=== PATIENT | male | born 1985 | race Caucasian/White ===

== ENCOUNTER 2021-04-12 23:08 | Emergency (ER) | payer OTHER ==
[2021-04-12 23:36] LABS: BASOPHIL 0.8 % (0-2); EOSINOPHIL 3.7 % (0-5); HCT 43.8 % (42.0-52.0); HGB 14.8 g/dl (13.2-18.0); LYMPHOCYTE 33.6 % (15-48); MCH 31.6 pg (25.0-31.0); MCHC 33.8 g/dL (32.0-36.0); MCV 93.6 fL (78.0-100.0); MONOCYTE 11.3 % (0-12); MPV 9.8 fL (6.0-9.5); NEUTROPHIL 48.4 % (41-80); NRBC 0; PLT 289 K/uL (150-400); RBC 4.68 M/uL (4.70-6.00); RDW 12.8 % (11.5-14.0); WBC 13.8 K/uL (4.0-10.5)
[2021-04-12 23:58] LABS: ACETAMINOPHEN (TYLENOL) < 2.0 ug/mL (10.0-30.0); ALBUMIN 3.8 g/dL (3.4-5.0); ALKALINE PHOSHATASE 110 U/L (46-116); ALT 137 U/L (16-63); AST 59 U/L (15-37); BILIRUBIN - TOTAL 0.2 mg/dL (0.2-1.0); BUN 14 mg/dL (7-18); BUN/CREAT RATIO (CALC) 12.2 RATIO; CHLORIDE 101 mmol/L (98-107); CO2 (BICARBONATE) 24 mmol/L (21-32); CPK 211 U/L (39-308); CREATININE 1.15 mg/dL (0.67-1.17); GLUCOSE 145 mg/dL (74-106); LIPASE 84 U/L (73-393); POTASSIUM 3.7 mmol/L (3.5-5.1); TOTAL PROTEIN 7.8 g/dL (6.4-8.2)
[2021-04-13] LABS: AMPHETAMINES NEGATIVE (NEGATIVE); BARBITURATES NEGATIVE (NEGATIVE); ECSTASY (MDMA) NEGATIVE (NEGATIVE); MARIJUANA (THC) NEGATIVE (NEGATIVE); METHADONE NEGATIVE (NEGATIVE); OPIATES NEGATIVE (NEGATIVE); OXYCODONE NEGATIVE (NEGATIVE)
[2021-04-13 00:01] LABS: BILIRUBIN NEGATIVE (NEGATIVE); BLOOD TRACE-INTACT Ery/uL (NEGATIVE); CLARITY CLEAR (CLEAR); COLOR YELLOW (YELLOW); GLUCOSE (U) NORMAL (NORMAL); LEUKOCYTES NEGATIVE Leu/uL (NEGATIVE); NITRITE NEGATIVE (NEGATIVE); PROTEIN NEGATIVE (NEGATIVE); SPECIFIC GRAVITY <=1.005 (1.001-1.030); UROBILINOGEN 0.2 mg/dL (0.2-1.0)
[2021-04-13 00:05] LABS: SQUAMOUS EPITHELIAL CELLS RARE
== END 2021-04-13 03:10 | disposition home or self-care (01) ==
LOC: FER 23:08
PROVIDERS: Emergency Medicine Emergency Medical Services
DX: R41.82 Altered mental status, unspecified (principal); F10.129 Alcohol abuse with intoxication, unspecified; Z86.16 Personal history of COVID-19
CPT/HCPCS: 36415; 70450; 71045; 80053; 80305; 81001; 82550; 83690; 84484; 85025; 93005; G0480; J2405; J3411; J7030

== ENCOUNTER 2021-10-03 13:15 | Emergency (ER) | payer OTHER ==
[2021-10-03 14:14] LABS: BASOPHIL 0.6 % (0-2); EOSINOPHIL 2.5 % (0-5); HCT 42.4 % (42.0-52.0); HGB 14.5 g/dl (13.2-18.0); LYMPHOCYTE 24.7 % (15-48); MCH 31.5 pg (25.0-31.0); MCHC 34.2 g/dL (32.0-36.0); MCV 92.2 fL (78.0-100.0); MONOCYTE 8.8 % (0-12); MPV 9.7 fL (6.0-9.5); NEUTROPHIL 62.7 % (41-80); NRBC 0; PLT 246 K/uL (150-400); RDW 12.2 % (11.5-14.0); WBC 8.4 K/uL (4.0-10.5)
[2021-10-03 14:41] LABS: ALBUMIN 4.3 g/dL (3.4-5.0); BILIRUBIN - TOTAL 0.4 mg/dL (0.2-1.0); BUN/CREAT RATIO (CALC) 13.8 RATIO; CREATININE 1.09 mg/dL (0.67-1.17); GLOBULIN (CALCULATION) 3.6 g/dL; POTASSIUM 3.5 mmol/L (3.5-5.1); TOTAL PROTEIN 7.9 g/dL (6.4-8.2)
[2021-10-03] MEDS ORDERED: PEPCID AC20 MG PO (15:09)
== END 2021-10-03 15:55 | disposition home or self-care (01) ==
LOC: FER 13:15
PROVIDERS: Emergency Medicine
DX: R07.89 Other chest pain (principal); K21.9 Gastro-esophageal reflux disease without esophagitis; Z20.822 Contact with and (suspected) exposure to COVID-19
CPT/HCPCS: 36415; 71045; 80053; 84484; 85025; 85379; 93005; U0002